=== PATIENT | male | born 1960 | race Caucasian/White ===

== ENCOUNTER 2021-02-01 01:57 | Emergency (ER) | payer BC ==
[2021-02-01] MEDS ORDERED: solu-MEDROL 125 MG, Sterile H2O 10 ml 2 ML IV ONE ×2 (02:29)
[2021-02-01] MEDS ORDERED: TORAdol 30 mg Injection IV ONE (02:29)
[2021-02-01] MEDS ORDERED: Sodium Chloride 0.9% 1000 ML 1,000 ML IV STA (02:31)
[2021-02-01] MEDS ORDERED: TORAdol 30 mg Injection ONE (02:35)
[2021-02-01] MEDS ORDERED: solu-MEDROL ONE (02:35)
[2021-02-01] MEDS ORDERED: Sodium Chloride 0.9% 1000 ML 1,000 ML ONE (02:35)
[2021-02-01] MEDS ORDERED: Sterile H2O 10 ml IJ ONE (02:35)
[2021-02-01 02:42] LABS: Absolute Neutrophil Ct (ANC) 3.44 (1.4-6.9); BASOPHIL % 0.3 % (0.0-0.4); Basophil (Absolute #) 0.02 (0-0.4); Eosinophil % 1.9 % (0.00-5.0); Eosinophil (Absolute #) 0.12 (0-0.5); Hematocrit 40.5 % (42-50); Hemoglobin 12.9 gm/dl (12.5-18.0); Lymphocyte (Absolute #) 1.69 (1.0-4.6); Lymphocytes % 27.2 % (24.0-44.0); Mean Cell Volume 95.7 fl (78-100); Mean Corpuscular Hemoglobin 30.5 pg (26-32); Mean Corpuscular Hgb Concent. 31.9 g/dl (32-36); Mean Platelet Volume 9.9 fl (7.5-11.0); Monocyte (Absolute #) 0.94 (0.0-1.3); Monocytes % 15.1 % (0.0-12.0); Neutrophil % 55.5 % (36.0-66.0); Platelet Count 183 K/mm3 (150-450); Red Blood Count 4.23 M/mm3 (4.1-5.6); Red Cell Distribution Width 14.7 % (11.5-14.0); White Blood Count 6.2 K/mm3 (4.0-10.5)
[2021-02-01 03:12] LABS: ALBUMIN 4.1 g/dL (3.5-5.0); ALKALINE PHOSPHATASE 95 U/L (38-126); ANION GAP 8.2 MEQ/L (5-15); BLOOD UREA NITROGEN 22 mg/dL (9-20); CHLORIDE 105 mmol/L (98-107); Calcium 8.9 mg/dL (8.4-10.2); Carbon Dioxide 30 mmol/L (22-30); Creatinine 1 1.08 mg/dL (0.66-1.25); EST GLOMERULAR FILTRATION RATE > 60.0 ML/MIN; Glucose 88 mg/dL (74-106); NT PRO BNP 58.9 pg/mL (0-900); Potassium 3.9 mmol/L (3.5-5.1); SGOT/AST 35 U/L (17-59); SGPT/ALT 29 U/L (0-50); SODIUM 139 mmol/L (137-145); Total Protein 6.8 g/dL (6.3-8.2)
[2021-02-01 03:14] VITALS: O2SAT 96
[2021-02-01 03:27] LABS: INFLUENZA A NEGATIVE (NEGATIVE); INFLUENZA B NEGATIVE (NEGATIVE); RESPIRATORY SYNCTIAL VIRUS NEGATIVE (Negative)
[2021-02-01 03:41] LABS: SARS-CoV-2 Xpert Express POSITIVE (NEGATIVE)
--- NOTE | 2021-02-01 03:48 | ERPHSYRPT ---
- History of Present Illness Time Seen by Provider: 02/01/21 02:20 Source: patient Exam Limitations: no limitations Patient Subjective Stated Complaint: pt states "My body aches. My had covid last week." Triage Nursing Assessment: pt ambulated into the er; pt is axo x4; c/o bodyaches and not feeling well; pt states 5/10 pain to legs; pt has dry hacking cough; clear lung sounds in all lobes; active bowel sounds in all quads; pt denies N/V/D; afebril; hypertension Physician History: Patient is a 60-year-old white male who presents with a complaint of generalized body aches. He has been sick for a week his was diagnosed with Covid 1 week ago. He is concerned because he had a myocardial infarction 11 years ago and has had chest pains as well he has not lost his sense of taste or smell. He has had minimal cough. His chief complaint is myalgias and arthralgia. Timing/Duration: week(s) (1) Cough Quality/Degree: mild, dry cough Possible Cause: no prior episodes Modifying Factors: Improves With: activity Associated Symptoms: chest pain/soreness, cough, muscle aches Allergies/Adverse Reactions: No Known Drug Allergies Allergy (Unverified 02/01/21 02:05) Home Medications: Aspirin EC 81 mg [Ecotrin 81 mg] 81 mg PO DAILY 02/01/21 [History] Atorvastatin Calcium [Lipitor] 20 mg PO DAILY 02/01/21 [History] Duloxetine HCl [Cymbalta] 60 mg PO DAILY 02/01/21 [History] Isosorbide Mononitrate 60 mg [Imdur 60MG] 60 mg PO DAILY 02/01/21 [History] Hx Tetanus, Diphtheria Vaccination/Date Given: Yes Hx Influenza Vaccination/Date Given: No Hx Pneumococcal Vaccination/Date Given: No Travel Risk - International Travel Have you traveled outside of the country in past 3 weeks: No - Coronavirus Screening Are you exhibiting any of the following symptoms?: Yes Symptoms: Fever, Cough: New Onset, Shortness of Breath, Headaches/Body Aches/Fatigue Close contact with a COVID-19 positive Pt in past 14-21 Days: Yes - Vaccine Status Have you recieved a Covid-19 vaccination: No - Review of Systems Constitutional: No Fever, No Chills Eyes: No Symptoms Ears, Nose, & Throat: No Symptoms Respiratory: No Cough, No Dyspnea Cardiac: No Chest Pain, No Edema, No Syncope Abdominal/Gastrointestinal: No Abdominal Pain, No Nausea, No Vomiting, No Diarrhea Genitourinary Symptoms: No Dysuria Musculoskeletal: Arthralgias, Joint Pain, Myalgias, No Back Pain, No Neck Pain Skin: No Rash Neurological: No Dizziness, No Focal Weakness, No Sensory Changes Psychological: No Symptoms Endocrine: No Symptoms All Other Systems: Reviewed and Negative - Past Medical History Pertinent Past Medical History: Yes Neurological History: No Pertinent History ENT History: No Pertinent History Cardiac History: High Cholesterol, Hypertension, Myocardial Infarction ([place]) Respiratory History: No Pertinent History Endocrine Medical History: No Pertinent History Musculoskeletal History: No Pertinent History GI Medical History: No Pertinent History History: No Pertinent History Psycho-Social History: Depression Male Reproductive Disorders: No Pertinent History - Past Surgical History Past Surgical History: Yes Cardiac: Cardiac Catheterization, Cardiac Stent Other Surgical History: left bicep repair, 4 cardiac stents - Social History Smoking Status: Former smoker Exposure to second hand smoke: No Drug Use: none Patient Lives Alone: No - Nursing Vital Signs Nursing Vital Signs: Initial Vital Signs Temperature 99.8 F 02/01/21 02:08 Pulse Rate 79 02/01/21 02:08 Respiratory Rate 22 02/01/21 02:08 Blood Pressure 170/105 02/01/21 02:08 O2 Sat by Pulse Oximetry 98 02/01/21 02:08 Pain Scale Pain Intensity 5 - Physical Exam General Appearance: mild distress, alert Eye Exam: PERRL/EOMI, eyes nml inspection Ears, Nose, Throat Exam: normal ENT inspection, TMs normal, pharynx normal, moist mucous membranes Neck Exam: normal inspection, non-tender, supple, full range of motion Respiratory Exam: normal breath sounds, lungs clear, No respiratory distress Cardiovascular Exam: regular rate/rhythm, normal heart sounds Gastrointestinal/Abdomen Exam: soft, No tenderness Back Exam: normal inspection, No CVA tenderness, No vertebral tenderness Extremity Exam: normal inspection, normal range of motion Neurologic Exam: alert, oriented x 3, cooperative, normal mood/affect, sensation nml, No motor deficits Skin Exam: normal color, warm, dry, No rash Lymphatic Exam: No adenopathy SpO2: 96 - Course Nursing assessment & vital signs reviewed: Yes EKG Interpreted by Me: RATE (75), Sinus Rhythm, NORMAL AXIS, Right Bundle Branch Block, Non-specific ST Changes - Radiology Exams Chest X-ray Interpretation: Interpreted by me, Other (Left basilar opacities) Ordered Tests: Active Orders 24 hr Category Date Time Status EKG-ER Only STAT Care 02/01/21 02:26 Active IV Insertion STAT Care 02/01/21 02:30 Active CHEST 1 VIEW (PORTABLE) Stat Exams 02/01/21 02:27 Ordered CBC W DIFF Stat Lab 02/01/21 02:35 Completed CMP Stat Lab 02/01/21 02:35 Completed D-DIMER QUANTITATIVE Stat Lab 02/01/21 02:35 Completed Lactic Acid Stat Lab 02/01/21 02:26 Ordered NT PRO BNP Stat Lab 02/01/21 02:35 Completed TROPONIN Q3H Lab 02/01/21 02:35 Completed TROPONIN Q3H Lab 02/01/21 05:30 Ordered TROPONIN Q3H Lab 02/01/21 08:30 Ordered TROPONIN Q3H Lab 02/01/21 11:30 Ordered TROPONIN Q3H Lab 02/01/21 14:30 Ordered Medication Summary Discontinued Medications Generic Name Dose Route Start Last Admin Trade Name Freq PRN Reason Stop Dose Admin Methylprednisolone Sodium 0 mg 02/01/21 02:29 02/01/21 02:38 Succinate 125 mg/ Sterile IV 02/01/21 02:30 125 mg Water 2 ml STAT ONE Administration Sodium Chloride 1,000 mls @ 999 mls/hr 02/01/21 02:31 02/01/21 02:38 Sodium Chloride 0.9% 1000 Ml IV 02/01/21 03:31 999 mls/hr .Q1H1M STA Administration Sodium Chloride Confirm 02/01/21 02:35 Sodium Chloride 0.9% 1000 Ml Administered 02/01/21 02:36 Dose 1,000 mls @ ud .ROUTE .STK-MED ONE Ketorolac Tromethamine 30 mg 02/01/21 02:29 02/01/21 02:38 Ketorolac Tromethamine 30 Mg/Ml Inj IV 02/01/21 02:30 30 mg STAT ONE Administration Ketorolac Tromethamine Confirm 02/01/21 02:35 Ketorolac Tromethamine 30 Mg/Ml Inj Administered 02/01/21 02:36 Dose 30 mg .ROUTE .STK-MED ONE Methylprednisolone Sodium Succinate Confirm 02/01/21 02:35 Methylprednis Sod Succ 125 Mg/2 Ml Vial Administered 02/01/21 02:36 Dose 125 mg .ROUTE .STK-MED ONE Sterile Water Confirm 02/01/21 02:35 Water For Injection,Sterile 10 Ml Vial Administered 02/01/21 02:36 Dose 10 ml IJ .STK-MED ONE Lab/Rad Data: Laboratory Result Diagrams 02/01/21 02:35 02/01/21 02:35 Laboratory Results 02/01/21 02/01/21 02/01/21 Range/Units 02:48 02:35 02:35 WBC (4.0-10.5) K/mm3 RBC (4.1-5.6) M/mm3 Hgb (12.5-18.0) gm/dl Hct (42-50) % MCV (78-100) fl MCH (26-32) pg MCHC (32-36) g/dl RDW (11.5-14.0) % Plt Count (150-450) K/mm3 MPV (7.5-11.0) fl Gran % (36.0-66.0) % Eos # (Auto) (0-0.5) Absolute Lymphs (auto) (1.0-4.6) Absolute Monos (auto) (0.0-1.3) Lymphocytes % (24.0-44.0) % Monocytes % (0.0-12.0) % Eosinophils % (0.00-5.0) % Basophils % (0.0-0.4) % Absolute Granulocytes (1.4-6.9) Basophils # (0-0.4) D-Dimer 864 H* (215-500) ng/mL Sodium (137-145) mmol/L Potassium (3.5-5.1) mmol/L Chloride (98-107) mmol/L Carbon Dioxide (22-30) mmol/L Anion Gap (5-15) MEQ/L BUN (9-20) mg/dL Creatinine (0.66-1.25) mg/dL Estimated GFR ML/MIN Glucose (74-106) mg/dL Calcium (8.4-10.2) mg/dL Total Bilirubin (0.2-1.3) mg/dL AST (17-59) U/L ALT (0-50) U/L Alkaline Phosphatase (38-126) U/L Troponin I < 0.012 (0.000-0.034) ng/mL NT-Pro-B Natriuret Pep (0-900) pg/mL Serum Total Protein (6.3-8.2) g/dL Albumin (3.5-5.0) g/dL Influenza Type A Ag NEGATIVE (NEGATIVE) Influenza Type B Ag NEGATIVE (NEGATIVE) RSV (PCR) NEGATIVE (Negative) SARS-CoV-2 (PCR) POSITIVE A (NEGATIVE) 02/01/21 02/01/21 Range/Units 02:35 02:35 WBC 6.2 (4.0-10.5) K/mm3 RBC 4.23 (4.1-5.6) M/mm3 Hgb 12.9 (12.5-18.0) gm/dl Hct 40.5 L (42-50) % MCV 95.7 (78-100) fl MCH 30.5 (26-32) pg MCHC 31.9 L (32-36) g/dl RDW 14.7 H (11.5-14.0) % Plt Count 183 (150-450) K/mm3 MPV 9.9 (7.5-11.0) fl Gran % 55.5 (36.0-66.0) % Eos # (Auto) 0.12 (0-0.5) Absolute Lymphs (auto) 1.69 (1.0-4.6) Absolute Monos (auto) 0.94 (0.0-1.3) Lymphocytes % 27.2 (24.0-44.0) % Monocytes % 15.1 H (0.0-12.0) % Eosinophils % 1.9 (0.00-5.0) % Basophils % 0.3 (0.0-0.4) % Absolute Granulocytes 3.44 (1.4-6.9) Basophils # 0.02 (0-0.4) D-Dimer (215-500) ng/mL Sodium 139 (137-145) mmol/L Potassium 3.9 (3.5-5.1) mmol/L Chloride 105 (98-107) mmol/L Carbon Dioxide 30 (22-30) mmol/L Anion Gap 8.2 (5-15) MEQ/L BUN 22 H (9-20) mg/dL Creatinine 1.08 (0.66-1.25) mg/dL Estimated GFR > 60.0 ML/MIN Glucose 88 (74-106) mg/dL Calcium 8.9 (8.4-10.2) mg/dL Total Bilirubin 0.30 (0.2-1.3) mg/dL AST 35 (17-59) U/L ALT 29 (0-50) U/L Alkaline Phosphatase 95 (38-126) U/L Troponin I (0.000-0.034) ng/mL NT-Pro-B Natriuret Pep 58.9 (0-900) pg/mL Serum Total Protein 6.8 (6.3-8.2) g/dL Albumin 4.1 (3.5-5.0) g/dL Influenza Type A Ag (NEGATIVE) Influenza Type B Ag (NEGATIVE) RSV (PCR) (Negative) SARS-CoV-2 (PCR) (NEGATIVE) - Progress Progress: unchanged Air Movement: good Blood Culture(s) Obtained: No Antibiotics given: Yes - Departure Departure Disposition: Home Clinical Impression: COVID-19 Condition: Stable Critical Care Time: No Referrals: Provider,Unknown [Primary Care Provider] - Follow up/PCP as directed Instructions: Coronavirus Disease 2019 (COVID-19) (DC) Prescriptions: Hydrocodone/Acetaminophen [Hydrocodone-Acetamin 5-325 mg] 1 tab PO Q6HPRN PRN 3 Days #12 tablet MDD 4 PRN Reason: Pain Prednisone 10 mg [Deltasone 10 mg] 20 mg PO BID #24 tablet Doxycycline Hyclate 100 mg [Vibramycin 100 MG] 100 mg PO BID #14 tab
[2021-02-01 04:05] VITALS: BP 140/87; PULSE 72
--- NOTE | 2021-02-01 09:02 | XRAY ---
Indication: Cough. Comparison: None Portable chest demonstrates normal heart and lungs with incidental tiny right perihilar calcified nodes. Bony thorax intact with mild osteopenia and degenerative changes.
== END 2021-02-01 04:05 | disposition home or self-care (01) ==
LOC: ED 01:57
DX: U07.1 COVID-19 (principal); M79.10 Myalgia, unspecified site; Z20.822 Contact with and (suspected) exposure to COVID-19; R05.9 Cough, unspecified; I25.2 Old myocardial infarction; I10 Essential (primary) hypertension; M25.50 Pain in unspecified joint; E78.5 Hyperlipidemia, unspecified; Z79.891 Long term (current) use of opiate analgesic
CPT/HCPCS: 0241U; 36000; 36415; 71045; 80053; 83880; 84484; 85025; 85379; 93005; 96360; 96374; 96375; 99284; J1885; J2930

== ENCOUNTER 2021-07-08 10:41 | Emergency (ER) | payer BC ==
--- NOTE | 2021-07-08 10:46 | ERPHSYRPT ---
- History of Present Illness Time Seen by Provider: 07/08/21 10:45 Source: patient Exam Limitations: no limitations Physician History: This is a 61-year-old white male who has significant coronary disease and a history of myocardial infarction and for cardiac stents in the past who presents with severe left hip pain. It was sudden in onset yesterday and has worsened s [place] that time. 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 He did not fall or have any trauma to the area. He has never had this kind of pain in the left hip before. In taking the history from him he did state that he was having some left chest pain yesterday and took some nitroglycerin and that pain has resolved. He has no leg pain or leg swelling or calf pain or calf tenderness. Timing/Duration: yesterday Context: unknown Quality: aching, stabbing Hip Pain Location: hip (L) Severity of Pain-Max: moderate Severity of Pain-Current: moderate Symptoms prior to fall: chest pain (Left anterior tightness) Associated Symptoms: denies symptoms Allergies/Adverse Reactions: No Known Drug Allergies Allergy (Verified 07/08/21 10:53) Home Medications: Aspirin EC 81 mg [Ecotrin 81 mg] 81 mg PO DAILY 02/01/21 [History] Atorvastatin Calcium [Lipitor] 20 mg PO DAILY 02/01/21 [History] Duloxetine HCl [Cymbalta] 60 mg PO DAILY 02/01/21 [History] Isosorbide Mononitrate 60 mg [Imdur 60MG] 60 mg PO DAILY 02/01/21 [History] Hx Tetanus, Diphtheria Vaccination/Date Given: Yes Hx Influenza Vaccination/Date Given: No Hx Pneumococcal Vaccination/Date Given: No Travel Risk - International Travel Have you traveled outside of the country in past 3 weeks: No - Coronavirus Screening Are you exhibiting any of the following symptoms?: No Close contact with a COVID-19 positive Pt in past 14-21 Days: No - Vaccine Status Have you recieved a Covid-19 vaccination: No - Review of Systems Constitutional: No Symptoms Eyes: No Symptoms Ears, Nose, & Throat: No Symptoms Respiratory: No Symptoms Cardiac: No Symptoms Abdominal/Gastrointestinal: No Symptoms Genitourinary Symptoms: No Symptoms Musculoskeletal: Joint Pain (Left hip) Skin: No Symptoms Neurological: No Symptoms Psychological: No Symptoms Endocrine: No Symptoms Hematologic/Lymphatic: No Symptoms Immunological/Allergic: No Symptoms All Other Systems: Reviewed and Negative - Past Medical History Pertinent Past Medical History: Yes Neurological History: No Pertinent History ENT History: No Pertinent History Cardiac History: High Cholesterol, Hypertension, Myocardial Infarction ([place]) Respiratory History: No Pertinent History Endocrine Medical History: No Pertinent History Musculoskeletal History: No Pertinent History GI Medical History: No Pertinent History History: No Pertinent History Psycho-Social History: Depression Male Reproductive Disorders: No Pertinent History - Past Surgical History Past Surgical History: Yes Cardiac: Cardiac Catheterization, Cardiac Stent Other Surgical History: left bicep repair, 4 cardiac stents - Social History Smoking Status: Former smoker Exposure to second hand smoke: No Drug Use: none Patient Lives Alone: No - Nursing Vital Signs Nursing Vital Signs: Initial Vital Signs Temperature 98.8 F 07/08/21 10:46 Pulse Rate 74 07/08/21 10:46 Respiratory Rate 22 07/08/21 10:46 Blood Pressure 156/89 07/08/21 10:46 O2 Sat by Pulse Oximetry 97 07/08/21 10:46 Pain Scale Pain Intensity 9 - Physical Exam General Appearance: no apparent distress, alert, anxiety Eye Exam: PERRL/EOMI, eyes nml inspection Ears, Nose, Throat Exam: normal ENT inspection, moist mucous membranes Neck Exam: normal inspection, non-tender, supple, full range of motion Respiratory Exam: normal breath sounds, chest tenderness (Tightness yesterday. 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, normal mood/affect, sensation nml, other (Did not test his gait or check his gait secondary to significant left hip pain) Skin Exam: normal color, warm, dry Lymphatic Exam: No adenopathy SpO2 Interpretation: normal O2 Delivery: Room Air - Course Nursing assessment & vital signs reviewed: Yes Ordered Tests: Active Orders 24 hr Category Date Time Status EKG-ER Only STAT Care 07/08/21 11:10 Active IV Insertion STAT Care 07/08/21 11:10 Active HIP UNI (2V) INCL PEL IF DONE Stat Exams 07/08/21 10:59 Completed CBC W DIFF Stat Lab 07/08/21 11:15 Completed CMP Stat Lab 07/08/21 11:15 Completed D-DIMER QUANTITATIVE Stat Lab 07/08/21 11:15 Completed TROPONIN Q3H Lab 07/08/21 11:15 Completed TROPONIN Q3H Lab 07/08/21 14:15 Ordered TROPONIN Q3H Lab 07/08/21 17:15 Ordered TROPONIN Q3H Lab 07/08/21 20:15 Ordered TROPONIN Q3H Lab 07/08/21 23:15 Ordered Medication Summary Discontinued Medications Generic Name Dose Route Start Last Admin Trade Name Freq PRN Reason Stop Dose Admin Aspirin 324 mg 07/08/21 11:10 07/08/21 11:24 Aspirin 81 Mg Tab.Chew PO 07/08/21 11:11 324 mg STAT ONE Administration Aspirin Confirm 07/08/21 11:22 Aspirin 81 Mg Tab.Chew Administered 07/08/21 11:23 Dose 324 mg .ROUTE .STK-MED ONE Methylprednisolone Sodium 0 mg 07/08/21 11:12 07/08/21 11:24 Succinate 125 mg/ Sterile IV 07/08/21 11:13 125 mg Water 2 ml STAT ONE Administration Methylprednisolone Sodium Succinate Confirm 07/08/21 11:23 Methylprednis Sod Succ 125 Mg/2 Ml Vial Administered 07/08/21 11:24 Dose 125 mg .ROUTE .STK-MED ONE Morphine Sulfate 6 mg 07/08/21 11:10 07/08/21 11:24 Morphine Sulfate 10 Mg/Ml Injection IV 07/08/21 11:11 6 mg STAT ONE Administration Morphine Sulfate Confirm 07/08/21 11:23 Morphine Sulfate 10 Mg/Ml Injection Administered 07/08/21 11:24 Dose 10 mg .ROUTE .STK-MED ONE Ondansetron HCl 4 mg 07/08/21 11:10 07/08/21 11:24 Ondansetron Hcl 4 Mg/2 Ml Vial IV 07/08/21 11:11 4 mg STAT ONE Administration Ondansetron HCl Confirm 07/08/21 11:22 Ondansetron Hcl 4 Mg/2 Ml Vial Administered 07/08/21 11:23 Dose 4 mg .ROUTE .STK-MED ONE Orphenadrine Citrate 60 mg 07/08/21 11:15 07/08/21 11:24 Orphenadrine Citrate 60 Mg/2 Ml Amp IV 07/08/21 11:16 60 mg STAT ONE Administration Orphenadrine Citrate Confirm 07/08/21 11:22 Orphenadrine Citrate 60 Mg/2 Ml Amp Administered 07/08/21 11:23 Dose 60 mg .ROUTE .[employer] ONE Sterile Water Confirm 07/08/21 11:22 Water For Injection,Sterile 10 Ml Vial Administered 07/08/21 11:23 Dose 10 ml IJ .[employer] ONE Lab/Rad Data: Laboratory Result Diagrams 07/08/21 11:15 07/08/21 11:15 Laboratory Results 07/08/21 07/08/21 07/08/21 Range/Units 11:15 11:15 11:15 WBC (4.0-10.5) x10^3/uL RBC (4.1-5.6) x10^6/uL Hgb (12.5-18.0) g/dL Hct (42-50) % MCV (78-100) fL MCH (26-32) pg MCHC (32-36) g/dL RDW (11.5-14.0) % Plt Count (150-450) x10^3/uL MPV (7.5-11.0) fL Gran % (36.0-66.0) % Immature Gran % (Auto) (0.00-0.4) % Nucleat RBC Rel Count (0.00-0.1) % Eos # (Auto) (0-0.5) x10^3/uL Immature Gran # (Auto) (0.00-0.03) x10^3u/L Absolute Lymphs (auto) (1.0-4.6) x10^3/uL Absolute Monos (auto) (0.0-1.3) x10^3/uL Absolute Nucleated RBC (0.00-0.01) x10^3u/L Lymphocytes % (24.0-44.0) % Monocytes % (0.0-12.0) % Eosinophils % (0.00-5.0) % Basophils % (0.0-0.4) % Absolute Granulocytes (1.4-6.9) x10^3/uL Basophils # (0-0.4) x10^3/uL D-Dimer 0.42 (0.0-0.50) ng/mL Sodium 140 (137-145) mmol/L Potassium 3.9 (3.5-5.1) mmol/L Chloride 105 (98-107) mmol/L Carbon Dioxide 27 (22-30) mmol/L Anion Gap 12.5 (5-15) MEQ/L BUN 17 (9-20) mg/dL Creatinine 0.84 (0.66-1.25) mg/dL Estimated GFR > 60.0 ML/MIN Glucose 106 (74-106) mg/dL Calcium 9.5 (8.4-10.2) mg/dL Total Bilirubin 0.60 (0.2-1.3) mg/dL AST 25 (17-59) U/L ALT 22 (0-50) U/L Alkaline Phosphatase 94 (38-126) U/L Troponin I < 0.012 (0.000-0.034) ng/mL Serum Total Protein 6.9 (6.3-8.2) g/dL Albumin 4.2 (3.5-5.0) g/dL 07/08/21 Range/Units 11:15 WBC 12.7 H (4.0-10.5) x10^3/uL RBC 4.48 (4.1-5.6) x10^6/uL Hgb 13.7 (12.5-18.0) g/dL Hct 41.4 L (42-50) % MCV 92.4 (78-100) fL MCH 30.6 (26-32) pg MCHC 33.1 (32-36) g/dL RDW 13.0 (11.5-14.0) % Plt Count 202 (150-450) x10^3/uL MPV 10.0 (7.5-11.0) fL Gran % 72.2 H (36.0-66.0) % Immature Gran % (Auto) 0.3 (0.00-0.4) % Nucleat RBC Rel Count 0.0 (0.00-0.1) % Eos # (Auto) 0.29 (0-0.5) x10^3/uL Immature Gran # (Auto) 0.04 H (0.00-0.03) x10^3u/L Absolute Lymphs (auto) 1.98 (1.0-4.6) x10^3/uL Absolute Monos (auto) 1.19 (0.0-1.3) x10^3/uL Absolute Nucleated RBC 0.00 (0.00-0.01) x10^3u/L Lymphocytes % 15.5 L (24.0-44.0) % Monocytes % 9.3 (0.0-12.0) % Eosinophils % 2.3 (0.00-5.0) % Basophils % 0.4 (0.0-0.4) % Absolute Granulocytes 9.19 H (1.4-6.9) x10^3/uL Basophils # 0.05 (0-0.4) x10^3/uL D-Dimer (0.0-0.50) ng/mL Sodium (137-145) mmol/L Potassium (3.5-5.1) mmol/L Chloride (98-107) mmol/L Carbon Dioxide (22-30) mmol/L Anion Gap (5-15) MEQ/L BUN (9-20) mg/dL Creatinine (0.66-1.25) mg/dL Estimated GFR ML/MIN Glucose (74-106) mg/dL Calcium (8.4-10.2) mg/dL Total Bilirubin (0.2-1.3) mg/dL AST (17-59) U/L ALT (0-50) U/L Alkaline Phosphatase (38-126) U/L Troponin I (0.000-0.034) ng/mL Serum Total Protein (6.3-8.2) g/dL Albumin (3.5-5.0) g/dL - Progress Progress: improved, pain not gone completely, re-examined Progress Note: 07/08/21 12:14 X-ray of the left hip shows no acute fracture or dislocation. 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 Follow-up with your primary care physician or orthopedic surgeon for follow-up of left hip pain. Ta ke your medication as prescribed. Prescriptions: Nitroglycerin 0.4 mg Tablet [Nitrostat 0.4 MG Tablet] 0.4 mg SL Q5MIN PRN MR X 3 PRN #100 tab.sl PRN Reason: Chest Pain Oxycodone HCl/Acetaminophen [Percocet 5-325 mg Tablet] 1 each PO Q8H PRN PRN #6 tablet MDD 3 PRN Reason: Moderate To Severe Pain Prednisone 10 mg [Deltasone 10 mg] 10 mg PO TID #12 tablet Orphenadrine Citrate 100 mg [Norflex 100 MG Tablet] 100 mg PO BID #10 tab
[2021-07-08] MEDS ORDERED: MORPHINE SULFATE 10 MG/ML IV ONE (11:10)
[2021-07-08] MEDS ORDERED: Zofran 4 MG/2 ML VIAL IV ONE (11:10)
[2021-07-08] MEDS ORDERED: BABY ASPIRIN 81 MG CHEW PO ONE (11:10)
[2021-07-08] MEDS ORDERED: solu-MEDROL 125 MG, Sterile H2O 10 ml 2 ML IV ONE ×2 (11:12)
[2021-07-08] MEDS ORDERED: Norflex 60 MG/2 ML IV ONE (11:15)
[2021-07-08] MEDS ORDERED: Norflex 60 MG/2 ML ONE (11:22)
[2021-07-08] MEDS ORDERED: Zofran 4 MG/2 ML VIAL ONE (11:22)
[2021-07-08] MEDS ORDERED: Sterile H2O 10 ml IJ ONE (11:22)
[2021-07-08] MEDS ORDERED: BABY ASPIRIN 81 MG CHEW ONE (11:22)
[2021-07-08] MEDS ORDERED: MORPHINE SULFATE 10 MG/ML ONE (11:23)
[2021-07-08] MEDS ORDERED: solu-MEDROL ONE (11:23)
[2021-07-08 11:31] LABS: Absolute Neutrophil Ct (ANC) 9.19 x10^3/uL (1.4-6.9); Basophil (Absolute #) 0.05 x10^3/uL (0-0.4); Eosinophil % 2.3 % (0.00-5.0); Eosinophil (Absolute #) 0.29 x10^3/uL (0-0.5); Hematocrit 41.4 % (42-50); Hemoglobin 13.7 g/dL (12.5-18.0); Lymphocyte (Absolute #) 1.98 x10^3/uL (1.0-4.6); Lymphocytes % 15.5 % (24.0-44.0); Mean Cell Volume 92.4 fL (78-100); Mean Corpuscular Hemoglobin 30.6 pg (26-32); Mean Corpuscular Hgb Concent. 33.1 g/dL (32-36); Monocyte (Absolute #) 1.19 x10^3/uL (0.0-1.3); Monocytes % 9.3 % (0.0-12.0); Neutrophil % 72.2 % (36.0-66.0); Platelet Count 202 x10^3/uL (150-450); Red Blood Count 4.48 x10^6/uL (4.1-5.6); White Blood Count 12.7 x10^3/uL (4.0-10.5)
[2021-07-08 11:52] LABS: ALBUMIN 4.2 g/dL (3.5-5.0); ALKALINE PHOSPHATASE 94 U/L (38-126); ANION GAP 12.5 MEQ/L (5-15); BLOOD UREA NITROGEN 17 mg/dL (9-20); CHLORIDE 105 mmol/L (98-107); Calcium 9.5 mg/dL (8.4-10.2); Carbon Dioxide 27 mmol/L (22-30); Creatinine 1 0.84 mg/dL (0.66-1.25); EST GLOMERULAR FILTRATION RATE > 60.0 ML/MIN; Glucose 106 mg/dL (74-106); Potassium 3.9 mmol/L (3.5-5.1); SGOT/AST 25 U/L (17-59); SGPT/ALT 22 U/L (0-50); SODIUM 140 mmol/L (137-145); Total Protein 6.9 g/dL (6.3-8.2)
--- NOTE | 2021-07-08 12:07 | XRAY ---
Indication: Pain. No known injury. Comparison: None AP pelvis and 2 view left hip demonstrates tiny left superior acetabular accessory ossicle. No other bony, articular, or soft tissue abnormalities.
[2021-07-08 12:27] VITALS: PULSE 61
[2021-07-08 12:36] VITALS: BP 116/67; O2SAT 93
== END 2021-07-08 12:46 | disposition home or self-care (01) ==
LOC: ED 10:41
DX: M25.552 Pain in left hip (principal); R07.89 Other chest pain; E78.5 Hyperlipidemia, unspecified; I10 Essential (primary) hypertension; Z79.891 Long term (current) use of opiate analgesic; Z79.52 Long term (current) use of systemic steroids; Z79.899 Other long term (current) drug therapy
CPT/HCPCS: 36000; 36415; 73502; 80053; 84484; 85025; 85379; 93005; 96374; 96375; 99284; J2270; J2360; J2405; J2930; A9270-GY